=== PATIENT | male | born 1950 | race Two or more races ===

== ENCOUNTER 2017-05-14 16:21 | Inpatient (IN) | payer MEDICARE, OTHER ==
[~2017-05-14] VITALS: Ht 177.8 cm; Wt 57.6 kg
[~2017-05-14 16:21] MED LIST: ATOR10TA PO; BLOO-140 IN; CLOP75TA33 PO; DOCU-141 PO; DOCU100C36 PO; FAMO20TA8 PO; LISI-607 PO; ROSU20TA PO; TAMS0.4C34 PO
--- NOTE | 2017-05-14 16:25 | NUR ---
Nursing supervisor plasma & security assistance were called for 1:1 sitter for this patient
[2017-05-14] MEDS ORDERED: ACET-2154 PO (16:49)
[2017-05-14] MEDS ORDERED: METF500T4 PO (16:49)
[2017-05-14] MEDS ORDERED: MAGN400O6 PO (16:49)
[2017-05-14] MEDS ORDERED: FERR-56 PO (16:49)
[2017-05-14] MEDS ORDERED: MULT1CAP PO (16:49)
[2017-05-14] MEDS ORDERED: ASCO500T9 PO (16:49)
[2017-05-14] MEDS ORDERED: NA P230E RC (16:49)
[2017-05-14] MEDS ORDERED: HALO5TAB PO (16:49)
[2017-05-14] MEDS ORDERED: DIVA500T2 PO (16:49)
--- NOTE | 2017-05-14 17:28 | NUR ---
1:1 laura is now here in ER, pt was seen roaming around in ER department, directable but non-verbal at this time
--- NOTE | 2017-05-14 18:14 | NUR ---
pending evlauation & orders at this time
--- NOTE | 2017-05-14 18:48 | NUR ---
still no urine specimen, urinal is at bedside with 1:1 sitter maintained
--- NOTE | 2017-05-14 19:04 | NUR ---
Still for urine specimen and medical clearance, endorsed to WILLIAM adrian
[2017-05-14 19:05] LABS: BASOPHILS # (AUTO) 0.1 K/uL (0.0-8.0); BASOPHILS % (AUTO) 0.6 % (0.0-2.0); EOSINOPHILS # (AUTO) 0.2 K/uL (0.0-0.7); EOSINOPHILS % (AUTO) 1.8 % (0.0-7.0); HEMATOCRIT 35.5 % (40-50); HEMOGLOBIN 11.8 G/DL (14.0-18.0); LYMPHOCYTES # (AUTO) 3.7 K/UL (0.8-4.8); LYMPHOCYTES % (AUTO) 34.9 % (20.5-51.5); MEAN CORPUSCULAR HEMOGLOBIN 29.9 UUG (27.0-31.0); MEAN CORPUSCULAR HGB CONC 33 g/dL (32.0-37.0); MEAN CORPUSCULAR VOLUME 90.4 FL (82.0-92.0); MONOCYTES # (AUTO) 0.8 K/UL (0.1-1.30); MONOCYTES % (AUTO) 7.3 % (0.0-11.0); NEUTROPHILS # (AUTO) 5.7 K/UL (1.8-8.9); NEUTROPHILS % (AUTO) 55.4 % (38.5-71.5); PLATELET COUNT (AUTO) 257 K/UL (150-450); RED BLOOD CELL COUNT(AUTO) 3.93 MIL/UL (4.7-6.1); WHITE BLOOD COUNT (AUTO) 10.5 K/UL (4.0-11.2)
--- NOTE | 2017-05-14 19:26 | NUR ---
Received call from Clau (HAT LINING PASTER) who will evaluate the patient, ETA 30 min.
[2017-05-14 19:33] LABS: ETHANOL < 3 MG/DL (0-0)
[2017-05-14 19:40] LABS: *BILIRUBIN,URIN NEGATIVE (NEGATIVE); *BLOOD, URINE NEGATIVE (NEGATIVE); *CLARITY,URINE CLEAR (CLEAR); *COLOR,URINE YELLOW (YELLOW); *KETONES,URINE NEGATIVE (NEGATIVE); *PROTEIN,URINE NEGATIVE (NEGATIVE); LEUKOCYTE ESTERASE ,URINE NEGATIVE (NEGATIVE); NITRITE, URINE NEGATIVE (NEGATIVE); UGLUCOSE NEGATIVE (NEGATIVE)
--- NOTE | 2017-05-14 19:40 | NUR ---
Pt became combative and tried striking staff. P's hands placed in soft restraints for pt and staff safety, per MD order.
[2017-05-14 19:41] LABS: ALANINE AMINOTRANSFERASE 17 U/L (16-63); ALKALINE PHOSPHATASE 44 U/L (50-136); ASPARTATE AMINOTRANSFERASE 15 U/L (15-37); BILIRUBIN,DIRECT 0.1 mg/dL (0.0-0.2); BILIRUBIN,TOTAL 0.2 mg/dL (0.2-1.0); CARBON DIOXIDE 32 mmol/L (21-32); CHLORIDE 104 mmol/L (98-107); GLUCOSE 75 mg/dL (74-106); POTASSIUM 3.9 mmol/L (3.5-5.1); TOTAL PROTEIN, SERUM 7.3 g/dL (6.4-8.2); UREA NITROGEN, BLOOD 24 mg/dL (7-18); VALPROIC ACID 40 ug/mL (50-100)
[2017-05-14 19:42] LABS: ACETAMINOPHEN < 2.0 ug/mL (10-30)
[2017-05-14] MEDS ORDERED: OLANZAPINE 10 MG VIAL IM ONE ×2 (19:45→20:06)
[2017-05-14 19:58] LABS: MUCUS,URINE FEW /LPF (0-FEW); RBC,URINE 0-3 /HPF (0-3); WBC,URINE NONE SEEN /HPF (0-3)
[2017-05-14 20:05] LABS: THYROID STIMULATING HORMONE 1.016 mIU/mL (0.358-3.740)
--- NOTE | 2017-05-14 20:46 | NUR ---
Called report to Beatriz.
[2017-05-14] MEDS ORDERED: MAGNESIUM HYDROXIDE 30 ML LIQUID UDC PO PRN (21:00)
[2017-05-14] MEDS ORDERED: MAG HYDROX/AL HYDROX/SIMETH 30 ML LIQUID UDC PO PRN (21:00)
[2017-05-14] MEDS ORDERED: MAGNESIUM HYDROXIDE 30 ML LIQUID UDC PO SCH (21:15)
[2017-05-14] MEDS ORDERED: ACETAMINOPHEN 325 MG TABLET PO SCH (21:15)
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
[2017-05-14 22:00] VITALS: BP 143/72
[2017-05-15 00:19] VITALS: BP 143/72
[2017-05-15] MEDS: TEMAZEPAM 7.5 MG CAPSULE PO PRN (00:57)
--- NOTE | 2017-05-15 01:11 | NUR ---
PT BECOME RESTLESS, AND AGITATIVE, TEMAZEPAM 7.5MG PO PRN WAS GIVEN FOR INSOMNIA. WILL MONITOR
[2017-05-15] MEDS: LORAZEPAM 0.5 MG TABLET PO PRN ×2 (06:12→17:14)
--- NOTE | 2017-05-15 06:29 | NUR ---
PATIENT WAS GIVEN TEMAZEPAM 7.5MG PO PRN FOR INSOMNIA, HOWEVER, HE ONLY SLEPT FOR ABOUT 2 HRS THROUGH THE NIGHT. PATIENT WAS NOTED ANXIOUS, RESTLESS. ATIVAN 0.5MG PO PRN WAS GIVEN AT APPROX 0620. WILL MONITOR
[2017-05-15 07:30] VITALS: BP 137/66
[2017-05-15] MEDS ORDERED: METFORMIN HCL 500 MG TABLET PO SCH (08:00)
[2017-05-15] MEDS: ASCORBIC ACID 500 MG TABLET PO SCH (08:52)
[2017-05-15] MEDS: MULTIVIT, IRON, MIN NO. 8, FA TABLET PO SCH (08:52)
[2017-05-15] MEDS: DOCUSATE SODIUM 100 MG CAPSULE PO SCH (08:52)
[2017-05-15] MEDS: FAMOTIDINE 20 MG TABLET PO SCH (08:52)
[2017-05-15] MEDS: FERROUS SULFATE 325 MG TABEC PO SCH (08:52)
[2017-05-15] MEDS ORDERED: DIVALPROEX 500 MG TABLET.DR PO SCH (09:00)
[2017-05-15] MEDS ORDERED: [UNRECOGNIZED DRUG - REMARK] PO SCH (09:00)
[2017-05-15] MEDS ORDERED: DEXTROSE 50% 50 ML DISP.SYRIN IV PRN (14:00)
[2017-05-15] MEDS ORDERED: INSULIN REGULAR, HUMAN 300 UNIT/3 ML VIAL SQ PRN (14:00)
[2017-05-15 15:00] VITALS: BP 95/60
[2017-05-15] MEDS: DIVALPROEX SPRINKLE 125 MG CAP.SPRINK PO SCH (17:14)
[2017-05-15] MEDS: ATORVASTATIN 10 MG TABLET PO SCH (20:17)
[2017-05-15] MEDS: QUETIAPINE FUMARATE 25 MG TABLET PO SCH (20:18)
[2017-05-16] MEDS: TEMAZEPAM 7.5 MG CAPSULE PO PRN (01:02)
--- NOTE | 2017-05-16 06:22 | NUR ---
PATIENT WAS GIVEN TEMAZEPAM 7.5MG PO PRN FOR INSOMNIA, HOWEVER, HE ONLY SLEPT APPROX 4 HRS THROUGH THE NIGHT. PATIENT WAS NOTED RESTLESS ON AND OFF
[2017-05-16] MEDS: BLOOD SUGAR DIAGNOSTIC 1 EACH STRIP VI SCH (07:05)
[2017-05-16 07:30] VITALS: BP 110/57
[2017-05-16] MEDS: FAMOTIDINE 20 MG TABLET PO SCH (09:15)
[2017-05-16] MEDS: LORAZEPAM 0.5 MG TABLET PO PRN ×2 (09:15→15:36)
[2017-05-16] MEDS: ASCORBIC ACID 500 MG TABLET PO SCH (09:15)
[2017-05-16] MEDS: DIVALPROEX SPRINKLE 125 MG CAP.SPRINK PO SCH ×2 (09:15→17:00)
[2017-05-16] MEDS: DOCUSATE SODIUM 100 MG CAPSULE PO SCH (09:15)
[2017-05-16] MEDS: FERROUS SULFATE 325 MG TABEC PO SCH (09:16)
[2017-05-16] MEDS: MULTIVIT, IRON, MIN NO. 8, FA TABLET PO SCH (09:17)
[2017-05-16 16:44] VITALS: BP 102/56
[2017-05-16 20:00] VITALS: BP 100/58
[2017-05-16] MEDS: QUETIAPINE FUMARATE 25 MG TABLET PO SCH (20:44)
[2017-05-16] MEDS: ATORVASTATIN 10 MG TABLET PO SCH (20:44)
[2017-05-17] MEDS: TEMAZEPAM 7.5 MG CAPSULE PO PRN ×2 (00:38→23:52)
--- NOTE | 2017-05-17 01:44 | NUR ---
RESTORIL 7.5mg ADMINISTERED, HOWEVER Pt REMAINS RESTLESS AND AGITATED. WILL ATTEMPT OTHER MEASURES TO PROMOTE SLEEP.
[2017-05-17] MEDS: BLOOD SUGAR DIAGNOSTIC 1 EACH STRIP VI SCH ×2 (06:37→08:14)
[2017-05-17] MEDS ORDERED: INSULIN REGULAR, HUMAN 300 UNIT/3 ML VIAL SQ PRN (07:00)
[2017-05-17] MEDS ORDERED: DEXTROSE 50% 50 ML DISP.SYRIN IV PRN (07:00)
[2017-05-17 07:30] VITALS: BP 179/80
[2017-05-17] MEDS ORDERED: BLOOD SUGAR DIAGNOSTIC 1 EACH STRIP VI SCH (07:30)
[2017-05-17] MEDS: DOCUSATE SODIUM 100 MG CAPSULE PO SCH (08:24)
[2017-05-17] MEDS: ASCORBIC ACID 500 MG TABLET PO SCH (08:24)
[2017-05-17] MEDS: FAMOTIDINE 20 MG TABLET PO SCH (08:24)
[2017-05-17] MEDS: FERROUS SULFATE 325 MG TABEC PO SCH (08:24)
[2017-05-17] MEDS: DIVALPROEX SPRINKLE 125 MG CAP.SPRINK PO SCH ×2 (08:24→17:25)
[2017-05-17] MEDS: MULTIVIT, IRON, MIN NO. 8, FA TABLET PO SCH (08:24)
[2017-05-17] MEDS: LORAZEPAM 0.5 MG TABLET PO PRN ×3 (08:25→19:30)
--- NOTE | 2017-05-17 11:49 | NUR ---
Firearms Reporting: GLENN submitted Mental Health Report to [employer] on 05/17.
--- NOTE | 2017-05-17 14:30 | NUR ---
Initial DC Plan: Patient currently resides at [facility] [[id number] [place] [address]; ]. GLENN spoke with Flynn at [facility] who stated patient can return to the facility when ready. GLENN will follow up with MD, patient, and patient's son Fab [[phone]] to discuss most appropriate discharge plans. GLENN will form a safe and proper discharge.
[2017-05-17 17:02] VITALS: BP 103/62
[2017-05-17] MEDS: ATORVASTATIN 10 MG TABLET PO SCH (20:11)
[2017-05-17] MEDS: QUETIAPINE FUMARATE 25 MG TABLET PO SCH (20:51)
--- NOTE | 2017-05-17 22:00 | NUR ---
received to care, up in josemanuel chair, talking to self, intermittently banging on table, difficult to redirect. PRN ativan was given at 1930, and, by 2099, he appeared calmer, and was given his bedtime medications. as of 2199, he is in bed, appears to be falling asleep. no distress noted. will continue to monitor closely.
--- NOTE | 2017-05-17 23:52 | NUR ---
pt is now awake, and restless. PRN restoril was given at this time. will continue to monitor closely.
[2017-05-17] MEDS: ACETAMINOPHEN 325 MG TABLET PO PRN (23:53)
--- NOTE | 2017-05-18 00:30 | NUR ---
appears to be asleep. no distress noted.
--- NOTE | 2017-05-18 01:30 | NUR ---
pt is now awake, attempting to climb out of bed. diaper change was provided, but he continues to try tyo climb out, unable to follow directions, so he was placed in the josemanuel chair for safety. currently yelling and banging on table. pt to be monitored closely, for safety.
[2017-05-18] MEDS: LORAZEPAM 0.5 MG TABLET PO PRN ×4 (01:59→18:41)
--- NOTE | 2017-05-18 01:59 | NUR ---
continues to bang on table, and atempt to climb out of chair, requiring staff to monitor pt on a 1;1 basis. PRN ativan was given at this time.
[2017-05-18] MEDS: BLOOD SUGAR DIAGNOSTIC 1 EACH STRIP VI SCH (06:42)
[2017-05-18] MEDS: FERROUS SULFATE 325 MG TABEC PO SCH (08:08)
[2017-05-18] MEDS: DIVALPROEX SPRINKLE 125 MG CAP.SPRINK PO SCH ×4 (08:08→20:21)
[2017-05-18] MEDS: DOCUSATE SODIUM 100 MG CAPSULE PO SCH (08:08)
[2017-05-18] MEDS: ASCORBIC ACID 500 MG TABLET PO SCH (08:08)
[2017-05-18] MEDS: FAMOTIDINE 20 MG TABLET PO SCH (08:08)
[2017-05-18] MEDS: MULTIVIT, IRON, MIN NO. 8, FA TABLET PO SCH (08:10)
[2017-05-18 08:30] VITALS: BP 132/62
[2017-05-18] MEDS: QUETIAPINE FUMARATE 25 MG TABLET PO SCH ×3 (13:54→20:21)
[2017-05-18 16:53] VITALS: BP 90/54
[2017-05-18] MEDS ORDERED: DIVALPROEX SPRINKLE 125 MG CAP.SPRINK PO SCH (17:00)
[2017-05-18] MEDS ORDERED: QUETIAPINE FUMARATE 25 MG TABLET PO SCH (17:00)
[2017-05-18 20:02] VITALS: BP 101/65
[2017-05-18] MEDS: ATORVASTATIN 10 MG TABLET PO SCH (20:21)
[2017-05-18] MEDS ORDERED: HALO2TAB PO (20:58)
[2017-05-18] MEDS: ACETAMINOPHEN 325 MG TABLET PO PRN (21:26)
[2017-05-18] MEDS: TEMAZEPAM 7.5 MG CAPSULE PO PRN (21:34)
--- NOTE | 2017-05-18 22:30 | NUR ---
received to care, up in josemanuel chair, initially appearing calm. began to get agitated, banging on table, difficult to redirect, so he was given PRN restoril, at 2133. he was assisted to bed, but he tried to climb over the rails, so he was placed back in the josemanuel chair, for safety. as of 2229, he appears to be asleep. no distress noted. will continue to monitor closely.
[2017-05-19] MEDS: LORAZEPAM 0.5 MG TABLET PO PRN ×3 (00:38→23:19)
--- NOTE | 2017-05-19 00:38 | NUR ---
remains awake, and restless. PRN ativan was given, at this time. will continue to monitor closely.
[2017-05-19 08:00] VITALS: BP 113/61
[2017-05-19] MEDS: BLOOD SUGAR DIAGNOSTIC 1 EACH STRIP VI SCH (08:59)
[2017-05-19] MEDS: ASCORBIC ACID 500 MG TABLET PO SCH (09:27)
[2017-05-19] MEDS: FAMOTIDINE 20 MG TABLET PO SCH (09:27)
[2017-05-19] MEDS: QUETIAPINE FUMARATE 25 MG TABLET PO SCH ×3 (09:27→17:09)
[2017-05-19] MEDS: FERROUS SULFATE 325 MG TABEC PO SCH (09:27)
[2017-05-19] MEDS: DIVALPROEX SPRINKLE 125 MG CAP.SPRINK PO SCH ×3 (09:27→17:09)
[2017-05-19] MEDS: DOCUSATE SODIUM 100 MG CAPSULE PO SCH (09:27)
[2017-05-19] MEDS: MULTIVIT, IRON, MIN NO. 8, FA TABLET PO SCH (09:27)
[2017-05-19 16:00] VITALS: BP 147/67
[2017-05-19] MEDS: ACETAMINOPHEN 325 MG TABLET PO PRN (20:34)
[2017-05-19] MEDS: ATORVASTATIN 10 MG TABLET PO SCH (20:34)
[2017-05-19] MEDS: TEMAZEPAM 7.5 MG CAPSULE PO PRN (20:49)
[2017-05-19 21:38] VITALS: BP 123/63
[2017-05-19] MEDS: HALOPERIDOL 1 MG TABLET PO SCH (21:54)
--- NOTE | 2017-05-19 22:00 | NUR ---
received to care, up in josemanuel chair, banging on the table, yelling intermittently. difficult to redirect. PRN restoril was given at 2048. pt was seen by Dr Lopez, and was also started on haldol. as of 2199, he remains agitated and restless. he was assisted to bed, but tried to climb over the rails, so he remains in the josemanuel chair. difficult to redirect. will continue to monitor closely.
--- NOTE | 2017-05-19 23:19 | NUR ---
remains up in the josemanuel chair, awake, and restless. attempting to grab staff by the arm, and twist it. PRN ativan was given at this time. will continue to monitor closely.
--- NOTE | 2017-05-20 01:00 | NUR ---
remains restless. banging on table, attempting to grab peoples arms when they walk by.
--- NOTE | 2017-05-20 06:00 | NUR ---
slept 2.5 hours total. assisted with AM care, and placed back in josemanuel chair. attempted to ambulate him, but he tried to strike staff, helping him. currently appears to be asleep. no distress noted.
[2017-05-20] MEDS: BLOOD SUGAR DIAGNOSTIC 1 EACH STRIP VI SCH (07:00)
[2017-05-20 07:30] VITALS: BP 128/72
[2017-05-20] MEDS: FAMOTIDINE 20 MG TABLET PO SCH (08:48)
[2017-05-20] MEDS: DIVALPROEX SPRINKLE 125 MG CAP.SPRINK PO SCH ×3 (08:48→16:42)
[2017-05-20] MEDS: HALOPERIDOL 1 MG TABLET PO SCH ×2 (08:49→16:43)
[2017-05-20] MEDS: MULTIVIT, IRON, MIN NO. 8, FA TABLET PO SCH (08:49)
[2017-05-20] MEDS: DOCUSATE SODIUM 100 MG CAPSULE PO SCH (08:49)
[2017-05-20] MEDS: ASCORBIC ACID 500 MG TABLET PO SCH (08:49)
[2017-05-20] MEDS: FERROUS SULFATE 325 MG TABEC PO SCH (08:49)
[2017-05-20] MEDS: LORAZEPAM 0.5 MG TABLET PO PRN ×2 (09:52→16:07)
[2017-05-20 15:27] VITALS: BP 112/74
[2017-05-20 20:00] VITALS: BP 124/60
[2017-05-20] MEDS: ATORVASTATIN 10 MG TABLET PO SCH (20:07)
[2017-05-21] MEDS: LORAZEPAM 0.5 MG TABLET PO PRN ×2 (02:21→19:45)
[2017-05-21] MEDS: BLOOD SUGAR DIAGNOSTIC 1 EACH STRIP VI SCH (06:42)
--- NOTE | 2017-05-21 06:53 | NUR ---
GPS: REMAIN CALM AND COMFORTABLE. SLEPT 6 HRS THROUGH THE NIGHT. CONTINUE ON 1:1 SITTER @ BED SIDE ALL THE TIME. CONTINUE PLAN OF CARE.
[2017-05-21 07:30] VITALS: BP 156/90
[2017-05-21] MEDS: MULTIVIT, IRON, MIN NO. 8, FA TABLET PO SCH (08:09)
[2017-05-21] MEDS: FERROUS SULFATE 325 MG TABEC PO SCH (08:09)
[2017-05-21] MEDS: HALOPERIDOL 1 MG TABLET PO SCH ×3 (08:09→17:22)
[2017-05-21] MEDS: DIVALPROEX SPRINKLE 125 MG CAP.SPRINK PO SCH ×2 (08:09→17:22)
[2017-05-21] MEDS: DOCUSATE SODIUM 100 MG CAPSULE PO SCH (08:09)
[2017-05-21] MEDS: FAMOTIDINE 20 MG TABLET PO SCH (08:09)
[2017-05-21] MEDS: ASCORBIC ACID 500 MG TABLET PO SCH (08:10)
[2017-05-21 15:00] VITALS: BP 123/66
[2017-05-21 20:01] VITALS: BP 133/71
[2017-05-21] MEDS: ATORVASTATIN 10 MG TABLET PO SCH (20:10)
[2017-05-21] MEDS: TEMAZEPAM 7.5 MG CAPSULE PO PRN (21:48)
[2017-05-22] MEDS: LORAZEPAM 0.5 MG TABLET PO PRN ×2 (02:52→08:41)
[2017-05-22] MEDS: BLOOD SUGAR DIAGNOSTIC 1 EACH STRIP VI SCH (06:31)
[2017-05-22 07:30] VITALS: BP 127/76
[2017-05-22] MEDS: DIVALPROEX SPRINKLE 125 MG CAP.SPRINK PO SCH ×2 (08:39→17:37)
[2017-05-22] MEDS: FAMOTIDINE 20 MG TABLET PO SCH (08:39)
[2017-05-22] MEDS: MULTIVIT, IRON, MIN NO. 8, FA TABLET PO SCH (08:39)
[2017-05-22] MEDS: ASCORBIC ACID 500 MG TABLET PO SCH (08:39)
[2017-05-22] MEDS: DOCUSATE SODIUM 100 MG CAPSULE PO SCH (08:39)
[2017-05-22] MEDS: HALOPERIDOL 1 MG TABLET PO SCH ×3 (08:40→17:38)
[2017-05-22] MEDS: FERROUS SULFATE 325 MG TABEC PO SCH (08:40)
[2017-05-22 15:45] VITALS: BP 129/68
[2017-05-22 19:48] VITALS: BP 133/60
[2017-05-22] MEDS: ATORVASTATIN 10 MG TABLET PO SCH (20:12)
[2017-05-22] MEDS: HALOPERIDOL 5 MG TABLET PO SCH (20:12)
[2017-05-22] MEDS: TEMAZEPAM 7.5 MG CAPSULE PO PRN (22:10)
[2017-05-23] MEDS: LORAZEPAM 0.5 MG TABLET PO PRN ×2 (01:57→13:08)
[2017-05-23] MEDS: BLOOD SUGAR DIAGNOSTIC 1 EACH STRIP VI SCH (06:35)
[2017-05-23 07:34] LABS: MAGNESIUM 2.1 mg/dL (1.8-2.4); POTASSIUM 3.8 mmol/L (3.5-5.1)
[2017-05-23 08:30] VITALS: BP 124/73
[2017-05-23] MEDS: DOCUSATE SODIUM 100 MG CAPSULE PO SCH (09:00)
[2017-05-23] MEDS: FERROUS SULFATE 325 MG TABEC PO SCH (09:57)
[2017-05-23] MEDS: MULTIVIT, IRON, MIN NO. 8, FA TABLET PO SCH (09:57)
[2017-05-23] MEDS: HALOPERIDOL 1 MG TABLET PO SCH ×3 (09:57→16:49)
[2017-05-23] MEDS: ASCORBIC ACID 500 MG TABLET PO SCH (09:57)
[2017-05-23] MEDS: FAMOTIDINE 20 MG TABLET PO SCH (10:01)
[2017-05-23] MEDS: DIVALPROEX SPRINKLE 125 MG CAP.SPRINK PO SCH ×3 (10:02→16:49)
[2017-05-23] MEDS: ACETAMINOPHEN 325 MG TABLET PO PRN (13:07)
[2017-05-23 15:38] VITALS: BP 119/71
--- NOTE | 2017-05-23 18:16 | NUR ---
Gps/Overlock Collar Setter- Dr Holliday, called informed of multiple abrassions on his shins, orders received.
[2017-05-23 20:22] VITALS: BP 158/85
[2017-05-23] MEDS: HALOPERIDOL 5 MG TABLET PO SCH (20:41)
[2017-05-23] MEDS: ATORVASTATIN 10 MG TABLET PO SCH (20:41)
[2017-05-24] MEDS: TEMAZEPAM 15 MG CAPSULE PO PRN (01:10)
[2017-05-24] MEDS: LORAZEPAM 0.5 MG TABLET PO PRN ×3 (02:56→22:57)
[2017-05-24] MEDS: BLOOD SUGAR DIAGNOSTIC 1 EACH STRIP VI SCH (06:47)
[2017-05-24 07:30] VITALS: BP 152/79
[2017-05-24] MEDS: DOCUSATE SODIUM 100 MG CAPSULE PO SCH (09:39)
[2017-05-24] MEDS: DIVALPROEX SPRINKLE 125 MG CAP.SPRINK PO SCH ×3 (09:40→17:54)
[2017-05-24] MEDS: FERROUS SULFATE 325 MG TABEC PO SCH (09:40)
[2017-05-24] MEDS: HALOPERIDOL 1 MG TABLET PO SCH ×3 (09:41→17:55)
[2017-05-24] MEDS: MULTIVIT, IRON, MIN NO. 8, FA TABLET PO SCH (09:42)
[2017-05-24] MEDS: ASCORBIC ACID 500 MG TABLET PO SCH (09:42)
[2017-05-24] MEDS: FAMOTIDINE 20 MG TABLET PO SCH (09:42)
[2017-05-24] MEDS: NEOMY/BACITRAC/POLYMI OINT 28.35 GM TUBE TOP SCH (09:48)
--- NOTE | 2017-05-24 14:11 | NUR ---
Patient extremely restless and agitated, banging on the table with his fist, non-redirectable, confused and disoriented, PO PRN ativan 1mg was given at 1401 for increased agitation. Will continue to monitor for safety and needs. Remains on 1:1 sitter.
[2017-05-24 16:29] VITALS: BP 101/67
[2017-05-24 20:00] VITALS: BP_SYST 149; BP_DIAS 91; BP_DIAS 97
[2017-05-24] MEDS: HALOPERIDOL 5 MG TABLET PO SCH (20:48)
[2017-05-24] MEDS: ATORVASTATIN 10 MG TABLET PO SCH (20:48)
[2017-05-25] MEDS: TEMAZEPAM 15 MG CAPSULE PO PRN ×2 (00:25→23:36)
[2017-05-25 07:30] VITALS: BP 119/79
[2017-05-25] MEDS: BLOOD SUGAR DIAGNOSTIC 1 EACH STRIP VI SCH (07:31)
[2017-05-25] MEDS: ASCORBIC ACID 500 MG TABLET PO SCH (09:24)
[2017-05-25] MEDS: MULTIVIT, IRON, MIN NO. 8, FA TABLET PO SCH (09:25)
[2017-05-25] MEDS: HALOPERIDOL 1 MG TABLET PO SCH (09:25)
[2017-05-25] MEDS: FERROUS SULFATE 325 MG TABEC PO SCH (09:25)
[2017-05-25] MEDS: FAMOTIDINE 20 MG TABLET PO SCH (09:25)
[2017-05-25] MEDS: DIVALPROEX SPRINKLE 125 MG CAP.SPRINK PO SCH ×2 (09:25→20:10)
[2017-05-25] MEDS: DOCUSATE SODIUM 100 MG CAPSULE PO SCH (09:25)
[2017-05-25] MEDS: NEOMY/BACITRAC/POLYMI OINT 28.35 GM TUBE TOP SCH (09:39)
[2017-05-25 16:26] VITALS: BP 132/92
[2017-05-25] MEDS ORDERED: HALOPERIDOL 1 MG TABLET PO SCH (17:00)
[2017-05-25] MEDS: HALOPERIDOL 5 MG TABLET PO SCH ×2 (17:20→20:09)
[2017-05-25 20:00] VITALS: BP 143/81
[2017-05-25] MEDS: ATORVASTATIN 10 MG TABLET PO SCH (20:10)
--- NOTE | 2017-05-25 23:40 | NUR ---
RECEIVED PATIENT IN THE HALLWAY, SITTING UPT IN A NIRALI CHAIR. HE IS A/O X 0. CONFUSED AND DISORIENTED. SHE CONTINUE ON 1:1 SUPERVISION FOR SAFETY. HE IS MEDICATION COMPLIANT AT THIS TIME. NO AGGRESSIVE BX NOTED AT THIS TIME. HOWEVER, AT APPROX 2330 PATIENT WAS NOTED AWAKE AND BANGING THE TABLE, UNABLE TO FALL ASLEEP. TEMAZEPAM 15MG PO PRN WAS GIVEN AT 2336 FOR INSOMNIA. WILL CONTINUE TO MONITOR.
[2017-05-26] MEDS: LORAZEPAM 0.5 MG TABLET PO PRN (01:43)
[2017-05-26] MEDS: BLOOD SUGAR DIAGNOSTIC 1 EACH STRIP VI SCH (06:49)
--- NOTE | 2017-05-26 06:52 | NUR ---
PATIENT SLEPT FOR APPROX 3.45HRS THROUGH THE NIGHT. HE CONTINUE ON 1:1 SUPERVISION. NO AGGRESSIVE BX NOTED OR REPORTED. HE CONTINUE CONFUSED DISORIENTED AND UNABLE TO MAKE HIS NEEDS KNOW. HE IS COMPLIANT WITH MEDICATION REGIMENT AT THIS TIME. WILL CONTINUE TO MONITOR.
[2017-05-26 07:30] VITALS: BP 119/63
[2017-05-26 07:36] LABS: BASOPHILS # (AUTO) 0.1 K/uL (0.0-8.0); BASOPHILS % (AUTO) 0.6 % (0.0-2.0); EOSINOPHILS # (AUTO) 0.3 K/uL (0.0-0.7); EOSINOPHILS % (AUTO) 2.7 % (0.0-7.0); HEMATOCRIT 37.2 % (36.7-47.1); HEMOGLOBIN 12.2 g/dL (12.5-16.3); LYMPHOCYTES # (AUTO) 3.7 K/uL (20.0-40.0); LYMPHOCYTES % (AUTO) 34.4 % (20.5-51.5); MEAN CORPUSCULAR HGB CONC 33 g/dL (32.5-36.3); MEAN CORPUSCULAR VOLUME 91.1 fL (73.0-96.2); MONOCYTES # (AUTO) 1.3 K/uL (2.0-10.0); MONOCYTES % (AUTO) 12.2 % (0.0-11.0); NEUTROPHILS # (AUTO) 5.3 K/uL (1.8-8.9); NEUTROPHILS % (AUTO) 50.1 % (38.5-71.5); PLATELET COUNT (AUTO) 284 K/uL (152-348); RED BLOOD CELL COUNT(AUTO) 4.08 MIL/uL (4.06-5.63); WHITE BLOOD COUNT (AUTO) 10.7 K/uL (3.6-10.2)
[2017-05-26 07:56] LABS: BILIRUBIN,TOTAL 0.3 mg/dL (0.2-1.0); POTASSIUM 4.2 mmol/L (3.5-5.1); TOTAL PROTEIN, SERUM 7.2 g/dL (6.4-8.2)
[2017-05-26] MEDS: ASCORBIC ACID 500 MG TABLET PO SCH (08:23)
[2017-05-26] MEDS: MULTIVIT, IRON, MIN NO. 8, FA TABLET PO SCH (08:23)
[2017-05-26] MEDS: FAMOTIDINE 20 MG TABLET PO SCH (08:23)
[2017-05-26] MEDS: HALOPERIDOL 5 MG TABLET PO SCH ×3 (08:23→20:28)
[2017-05-26] MEDS: DOCUSATE SODIUM 100 MG CAPSULE PO SCH (08:24)
[2017-05-26] MEDS: DIVALPROEX SPRINKLE 125 MG CAP.SPRINK PO SCH ×2 (08:24→20:28)
[2017-05-26] MEDS: FERROUS SULFATE 325 MG TABEC PO SCH (08:24)
[2017-05-26] MEDS ORDERED: TEMAZEPAM 15 MG CAPSULE PO SCH (08:45)
[2017-05-26] MEDS: NEOMY/BACITRAC/POLYMI OINT 28.35 GM TUBE TOP SCH (09:09)
[2017-05-26 15:18] VITALS: BP 125/74
[2017-05-26 19:54] VITALS: BP 141/70
[2017-05-26] MEDS: ATORVASTATIN 10 MG TABLET PO SCH (20:28)
--- NOTE | 2017-05-26 22:10 | NUR ---
RECEIVED PATIENT IN THE DAY ROOM. HE CONTINUE ON 1:1 SUPERVISION FOR SAFETY. HE IS AWAKE A/O X0 CONFUSED, RESTLESS; HOWEVER, IN NO ACUTE DISTRESS. PATIENT CONTINUE ON 1:1 SUPERVISION FOR SAFETY. MEDICATION COMPLIANT AT THIS TIME. NO AGGRESSIVE BX NOTED AT THIS TIME. WILL CONTINUE TO MONITOR.
[2017-05-27] MEDS: LORAZEPAM 0.5 MG TABLET PO PRN ×2 (00:45→13:42)
--- NOTE | 2017-05-27 00:50 | NUR ---
Patient was noted restless, tapping on the josemanuel chair table. Ativan 1mg PO PRN was given for agitation at approx 0045. will continue on 1:1 supervision.
[2017-05-27] MEDS: BLOOD SUGAR DIAGNOSTIC 1 EACH STRIP VI SCH (06:41)
--- NOTE | 2017-05-27 07:35 | NUR ---
PATIENT SLEPT FOR APPROX 3.15 HRS THROUGH THE NIGHT. NO AGGRESSIVE BX NOTED DURING THE SHIFT
--- NOTE | 2017-05-27 08:17 | NUR ---
DC Note: Patient will be discharged to [facility] [[address] [place] [address]; ] via ambulance at 10:30am. LGENN spoke with Flynn at [facility] to confirm discharge plans. GLENN spoke with patient's son Fab [[phone]] who is aware and agreeable to discharge plans. Patient will follow up with Dr. Justice (Medical Sales) and Dr. Miguel (Psychiatrist).
[2017-05-27] MEDS: FERROUS SULFATE 325 MG TABEC PO SCH (09:19)
[2017-05-27] MEDS: ASCORBIC ACID 500 MG TABLET PO SCH (09:19)
[2017-05-27] MEDS: FAMOTIDINE 20 MG TABLET PO SCH (09:19)
[2017-05-27] MEDS: DIVALPROEX SPRINKLE 125 MG CAP.SPRINK PO SCH (09:21)
[2017-05-27] MEDS: MULTIVIT, IRON, MIN NO. 8, FA TABLET PO SCH (09:21)
[2017-05-27] MEDS: DOCUSATE SODIUM 100 MG CAPSULE PO SCH (09:21)
[2017-05-27] MEDS: HALOPERIDOL 5 MG TABLET PO SCH (09:21)
[2017-05-27] MEDS: NEOMY/BACITRAC/POLYMI OINT 28.35 GM TUBE TOP SCH (09:50)
[2017-05-27 10:18] VITALS: BP 116/51
--- NOTE | 2017-05-27 14:48 | NUR ---
gps/Stockroom Helper- Called [facility] , report was given to Nurse Parker.
--- NOTE | 2017-05-27 14:49 | NUR ---
Gps/Manager Data Warehouse- Discharged to [facility] via ambulance no distress, all belongings given back to patient.No distress. report given to Prima Nurse.
== END 2017-05-27 15:01 | DRG 885 ==
LOC: ER 16:27 → GPS 20:45
PROVIDERS: ADMIT Psychiatry & Neurology Psychiatry; ATTEND Internal Medicine
DX: F23 Brief psychotic disorder (principal); E11.51 Type 2 diabetes mellitus with diabetic peripheral angiopathy without gangrene; G30.9 Alzheimer's disease, unspecified; F02.81 Dementia in other diseases classified elsewhere, unspecified severity, with behavioral disturbance; Z91.81 History of falling; E78.5 Hyperlipidemia, unspecified; Z79.899 Other long term (current) drug therapy; I25.10 Atherosclerotic heart disease of native coronary artery without angina pectoris; Z98.61 Coronary angioplasty status; Z87.01 Personal history of pneumonia (recurrent); Z79.84 Long term (current) use of oral hypoglycemic drugs; N40.0 Benign prostatic hyperplasia without lower urinary tract symptoms; F41.9 Anxiety disorder, unspecified; I10 Essential (primary) hypertension; K21.9 Gastro-esophageal reflux disease without esophagitis; F25.0 Schizoaffective disorder, bipolar type
CPT/HCPCS: 36415; 80164; 83735; 84443; 85025; 93005; 97110; 97116; 97530; A4663; G0480; G0480-TC; J1815; J2358